=== PATIENT | male | born 1945 | race Native Hawaiian/Other Pacific Islander ===

== ENCOUNTER 2016-03-27 12:46 | Outpatient (CLI) | payer OTHER ==
[2016-03-27 13:20] LABS: PLATELET COUNT 203 K/uL (142-355)
[2016-03-27 14:11] LABS: POTASSIUM 5.1 mmol/L (3.6-5.2); SODIUM 137 mmol/L (136-145)
== END 2016-03-27 23:46 | disposition home or self-care (01) ==
LOC: LAB 12:46
PROVIDERS: Nurse Practitioner Family
DX: E78.4 Other hyperlipidemia (principal); Z79.899 Other long term (current) drug therapy; Z51.81 Encounter for therapeutic drug level monitoring
CPT/HCPCS: 80053; 80061; 83036; 84439; 84443; 85027

== ENCOUNTER 2019-03-19 10:07 | Outpatient (CLI) | payer OTHER | END 2019-03-19 19:53 | disposition home or self-care (01) | LOC: RESP 10:07 | DX: R00.1 Bradycardia, unspecified (principal) | CPT/HCPCS: 93005 ==